=== PATIENT | male | born 1955 | race Caucasian/White ===

== ENCOUNTER 2022-08-31 06:26 | Day surgery (SDC) | payer MEDICARE ==
[2022-08-30 13:35] VITALS: BMI 34.2
[2022-08-31] MEDS ORDERED: PROPOFOL 20 ML ONE (08:11)
[2022-08-31] MEDS ORDERED: Fentanyl 100 MCG/2 ML VIAL ONE (08:11)
== END 2022-08-31 08:58 | disposition home or self-care (01) ==
LOC: CSHSDC 06:26
PROVIDERS: ATTEND Internal Medicine Gastroenterology
PROC: 0DB48ZX Excision of Esophagogastric Junction, Via Natural or Artificial Opening Endoscopic, Diagnostic (ICD-10-PCS; principal; 2022-08-31)
DX: K21.00 Gastro-esophageal reflux disease with esophagitis, without bleeding (principal); K22.89 Other specified disease of esophagus; E11.9 Type 2 diabetes mellitus without complications; E78.5 Hyperlipidemia, unspecified; I10 Essential (primary) hypertension; F41.9 Anxiety disorder, unspecified; Z86.010 Personal history of colon polyps; Z79.899 Other long term (current) drug therapy; Z79.84 Long term (current) use of oral hypoglycemic drugs
CPT/HCPCS: 36416; 88305; 88312; 88313; J2704; J3010